=== PATIENT | female | born 1925 | race Caucasian/White ===

== ENCOUNTER 2016-10-19 12:00 | Observation (INO) | payer MEDICARE ==
[2016-10-19] MEDS ORDERED: SODIUM CHLORIDE 0.9% 1,000 ML ONE (12:58)
[2016-10-19 13:05] LABS: ABSOLUTE NEUTROPHIL COUNT 3.7 K/mm3 (1.8-7.7); BASO % 0.6 % (0.2-1.0); EOS # 0.3 (0.0-0.5); EOS % 3.9 % (0.9-2.9); IMM NEUT% 0.2 % (0-1); LYMPH # 1.8 (1.0-4.8); LYMPH % 27.5 % (15-45); MEAN CELL VOLUME 97.3 fl (81.0-99.0); MEAN CORPUSCULAR HGB CONC 31.8 g/dl (33.0-37.0); MEAN PLATELET VOLUME 9.3 fl (7.4-10.4); MONO # 0.6 (0.0-0.8); MONO % 9.1 % (4-12); NEUT % 58.7 % (43-75); PLATELET COUNT 188 K/mm3 (130-400); RED CELL DISTRIBUTION WIDTH 13.8 % (11.5-14.5)
[2016-10-19 13:12] LABS: PH,URINE 6.5 (5.0-8.0); URINE BILIRUBIN NEGATIVE (NEGATIVE); URINE BLOOD 2+ (NEGATIVE); URINE GLUCOSE (UA) NEGATIVE (NEGATIVE); URINE LEUKOCYTE ESTERASE TRACE (NEGATIVE); URINE NITRITE NEGATIVE (NEGATIVE); URINE PROTEIN NEGATIVE (NEGATIVE); URINE UROBILINOGEN NORMAL (0-1 mg/dl)
[2016-10-19 13:12] LABS: INR 3.03; PROTHROMBIN TIME 33.7 SECONDS (9.3-11.4)
[2016-10-19 13:15] LABS: URINE APPEARANCE CLEAR; URINE COLOR YELLOW
[2016-10-19 13:20] LABS: ALB/GLOB RATIO 1.2 (>1.0); ALBUMIN 3.7 gm/dL (3.5-5.7); CALCIUM 9.3 mg/dL (8.6-10.3)
[2016-10-19 13:25] LABS: URINE BACTERIA 2+; URINE RBC 0 /hpf
--- NOTE | 2016-10-19 13:54 | CT ---
Exam: CT head without contrast COMPARISON: 01/11/2013 INDICATION: High blood pressure. Anticoagulated. TECHNIQUE: CT examination of the head was obtained without contrast. FINDINGS: There is a tiny focus of cortically based increased signal intensity within the left parietal high convexity which was not seen on the 2013 exam. Although this could potentially reflect a small cortically based calcification, this finding does raise concern for a small petechial hemorrhage. No additional concern for acute intracranial hemorrhage is identified. There is no abnormal intra or extra-axial fluid collection. Cortical hernandez-white matter differentiation is maintained and there is no mass effect or midline shift. Ventricles remain mildly prominent. Patchy periventricular and deep white matter hypodensities are present, not significantly changed, compatible with chronic small vessel ischemic changes which are moderate in severity. There is mild to moderate global atrophy. The visualized paranasal sinuses and mastoid air cells are well aerated. IMPRESSION: Tiny linear focus of high density within the posterior left parietal high convexity which raises concern for small petechial hemorrhage given the history. No additional concern for acute intracranial hemorrhage is identified. Otherwise no significant interval change since 01/11/2013. Findings discussed with Dr. Wick at 1345 hours 10/19/2016.
[2016-10-19] MEDS ORDERED: LABETALOL HCL 5 MG/ML 20ML VIAL IV ONE (14:08)
[2016-10-19] MEDS ORDERED: PHYTONADIONE PO ONE (14:30)
[2016-10-19 15:14] VITALS: BMI 28.6
[2016-10-19] MEDS ORDERED: SODIUM CHLORIDE 0.9% 100 ML IV PRN (16:21)
[2016-10-19] MEDS ORDERED: MENTHOL/CETYLPYRD 1 EACH LOZENGE PO PRN (16:21)
[2016-10-19] MEDS ORDERED: MAGNESIUM HYDROXIDE 30 ML UDCUP PO PRN (16:21)
[2016-10-19] MEDS ORDERED: BISACODYL 10 MG SUP PR PRN (16:21)
[2016-10-19] MEDS ORDERED: ACETAMINOPHEN 325 MG TABLET PO PRN (16:21)
[2016-10-19] MEDS ORDERED: BLISTEX LIPSTICK 1 EACH TP PRN (16:21)
[2016-10-19] MEDS ORDERED: BISACODYL 5 MG TABLET.EC PO PRN (16:21)
[2016-10-19] MEDS ORDERED: LIDOCAINE 5% PATCH TD PRN (16:36)
[2016-10-19] MEDS: ENALAPRILAT DIHYDRATE 1.25 MG/ML 1ML VIAL IV SCH ×2 (17:37→23:08)
[2016-10-19] MEDS: POLYVINYL ALCOHOL 1.4% (TEARS) 300 GTTS/BOT SOLN.DROP OU SCH ×2 (17:37→20:59)
[2016-10-19] MEDS: PANTOPRAZOLE 40 MG TABLET DR PO SCH (17:37)
--- NOTE | 2016-10-19 17:49 | HP ---
DEANN LLAMAS [id number] DATE OF ADMISSION: October 19, 2016 CHIEF COMPLAINT: Vertigo. HISTORY OF PRESENT ILLNESS: The patient is an 89-year-old female who noted some dizziness and spinning when she would get up to the edge of her bed. This started a couple of days ago. She does not recall any initiating events. She notes that these symptoms seemed to improve after about one or two minutes after sitting at the edge of the bed, and she can walk okay using her cane which is her usual assistive device. She has noted a little bit of noise that seems to be in the right ear although it is hard to tell which ear is causing this. She describes it as sounding like a car idling. She has had no recent falls. She had checked her blood pressure at home and since it was high, she came to the emergency room to have this checked out. She has not had a headache or other symptoms. She notes her blood pressure is 180/107 at home with a heart rate of 58. In the emergency room, she had a CT of the head which had suggested a possible intracranial hemorrhage and being that she was on Coumadin, she was given a dose of vitamin K and hospitalist service contacted to observe this patient. PAST MEDICAL HISTORY: Is significant for: 1. Chronic atrial fibrillation. She is on Coumadin for this. 2. She has a history of moderate pulmonary hypertension. She had previously refused cardiac catheterization. 3. She has a history of hypertension. 4. Dyslipidemia. 5. Hypothyroidism. 6. History of hyperglycemia. 7. History of postherpetic neuralgia after having zoster on her left arm. 8. History of diverticulitis. PAST SURGICAL HISTORY: Remarkable for: 1. Cholecystectomy. 2. Thyroidectomy. 3. Left knee arthroscopy. 4. Dilation and curettage times two. 5. Colonoscopy. 6. Open reduction internal fixation of left humerus. 7. Cataract replacement. ALLERGIES: LISTED TAPE. CURRENT MEDICATIONS: 1. Levothyroxine 75 mcg daily. 2. Metoprolol 25 mg orally twice daily. 3. Prilosec 20 mg daily. 4. Spironolactone is listed although she states she does not take this. 5. Warfarin is 4 mg Thursday, Thursday, , and Thursday and 2 mg Thursday, Thursday and Thursday. 6. She also asks for her eyedrops for dry eyes. 7. She takes vitamin C. SOCIAL HISTORY: She is recently this year. She has two children, both live in [place]. No smoking, having quit at age 61. She does not drink. She lives in her home in [place]. She was baptized [employer] but not active. Hobbies include golfing and bowling, but she is not able to do these at this time. FAMILY HISTORY: Mom at 63 of heart disease according to old records. Father at 70 of diabetes and emphysema. She has three sisters with diabetes. REVIEW OF SYSTEMS: She has had some double vision but this is not new. She has been seeing her eye doctor for this for some time. Ears have that idling sound evident but it does not interfere with conversation. Hearing is otherwise okay. She does use hearing aids. Nose has been okay. She notes some sinus symptoms due to her daffodils. Mouth has been okay. Dentures are okay. Neck is okay. She uses a little pillow to raise her neck and shoulders because her neck and shoulders have been sore after a fall she had years ago. She notes her left side can get sore if she is lying on her side. Her left arm hurts some because of shingles which the rash has since resolved but it still continues to hurt some in a post herpetic fashion. Breathing has been okay. Heart has atrial fibrillation, but she is not limited in activities by her heart but rather her arthritis. Stomach, she has had a little bit more gas than average but has had no vomiting, no diarrhea, no constipation. No urinary complaints other than occasional leaking when she stands up. She uses a pad for this. Legs have been okay. Her knees have osteoarthritis. She has had some dry skin. She treats this with Gold Dowell powder. She has not had a prior history of strokes. Her code status is DO NOT RESUSCITATE. PHYSICAL EXAMINATION: GENERAL: A nontoxic female. VITAL SIGNS: Blood pressure is 185/110 here on the floor. Temperature 98.1, pulse 79, respirations 19, 96% saturation on room air. HEENT: Head is normocephalic, atraumatic. Eyes are normal externally. Ears, the right is unremarkable appearing. Tympanic membrane is hernandez and pearly without effusion or erythema. The left is somewhat occluded by cerumen and difficult to assess. Nose is unremarkable. Mouth has dentures. Mucous membranes are moist and unremarkable. NECK: No jugular venous distention is noted. No bruits are noted. No masses are noted. RESPIRATORY: Lungs are clear to auscultation bilaterally. CARDIOVASCULAR: Mostly regular rate and rhythm, although electrocardiogram shows a flutter pattern. ABDOMEN: Nontender, nondistended. Bowel sounds are quiet, no bruit, no masses noted. GENITOURINARY: Exam is deferred. BREAST: Exam is deferred. EXTREMITIES: Show no pitting edema although she does have large legs with delicate ankles and feet. Feet without ulceration or other changes. NEUROLOGIC: Oriented times three. Cranial nerves are intact. Speech is clear, fluent. She answers appropriately. Left shoulder demonstrates limited range of motion but hand grasp is otherwise fairly symmetric. Gait is not tested at this time. No nystagmus is seen at rest. Deep tendon reflexes are 2+ throughout. LABORATORY STUDIES: White count 6.4, hemoglobin 14.0, platelets 188. INR of 3.03. Sodium 139, potassium 4.3, chloride 103, CO2 29, BUN 13, creatinine 0.9, glucose 107, calcium is 9.3. Liver function tests are normal. Urinalysis, specific gravity 1.010, 1 to 4 red cells, 1 to 4 white cells. DIAGNOSTIC IMAGING: CT of brain has tiny focus of high density posterior left parietal high convexity raising concern for small petechial hemorrhage otherwise no acute changes. ELECTROCARDIOGRAM: Shows atrial flutter with a heart rate of 62 beats per minute with PVC noted. ASSESSMENT AND PLAN: 1. Vertigo. History suggests benign positional vertigo but with abnormal CT. We will be checking with physical therapy and occupational therapy and appreciate their input. 2. Possible abnormal CT. We will be holding warfarin. She received vitamin K. Plan neurologic checks and recheck CT in the morning and appreciate physical therapy and occupational therapy care. 3. Hypertension. Plan to increase treatment adding enalapril at low doses to get a blood pressure around 160/90. 4. Post herpetic neuralgia. We will consider trying lidocaine patches for arm. 5. Hypothyroidism. Continue on levothyroxine. 6. Recent loss of . Not otherwise addressed. 7. Dry eyes. Artificial tears ordered. 8. DO NOT RESUSCITATE status. This is ordered. 9. Venous thrombosis prophylaxis. Patient will be on mechanical treatment for right now avoiding Lovenox due to concern for intracranial bleed. 10. Chronic atrial fibrillation. Her rate is well controlled. Continue on metoprolol but will be holding warfarin at this time. 11. History of moderate pulmonary hypertension, reported stable. Cc: Cordell Randle M.D.
[2016-10-19] MEDS: DOCUSATE SODIUM 100 MG CAPSULE PO SCH (20:59)
[2016-10-19] MEDS: METOPROLOL TARTRATE 25 MG TABLET PO SCH (20:59)
[2016-10-20] MEDS: ENALAPRILAT DIHYDRATE 1.25 MG/ML 1ML VIAL IV SCH (05:17)
[2016-10-20 06:02] LABS: HEMATOCRIT 41.1 % (37.0-47.0); HEMOGLOBIN 13.3 gm/l (12.0-16.0)
[2016-10-20 06:16] LABS: INR 1.66; PROTHROMBIN TIME 17.9 SECONDS (9.3-11.4)
--- NOTE | 2016-10-20 06:33 | PDOC43 ---
- Subjective Chief Complaint: vertigo Patient reports not sleeping so well, but this was due more to the light in the room and being bothered by the ICD on her legs. No further vertigo. Some gas but no nausea, no pain. No new c/o. Awaiting CT scan this am. - Objective Vital Signs Temperature 98 F 10/20/16 05:02 Pulse Rate 56 10/20/16 05:43 Respiratory Rate 14 10/20/16 05:43 Blood Pressure 150/74 10/20/16 05:43 O2 Saturation by Pulse Oximetry 95 10/20/16 05:43 Oxygen Delivery Method Room Air Oxygen Flow Rate 0 Vital Signs Last 12 Hours Temp Pulse Resp BP Pulse Ox 10/20/16 05:43 56 14 150/74 95 10/20/16 05:02 98 F 60 14 152/73 93 10/20/16 03:09 100.6 F 62 14 166/88 94 10/20/16 01:10 16 10/19/16 23:14 62 185/85 97 10/19/16 22:58 98.9 F 66 16 133/105 96 10/19/16 19:39 98.3 F 60 18 157/78 95 10/19/16 19:00 18 Intake and Output 10/18/16 10/19/16 10/20/16 23:59 23:59 23:59 Intake Total 536 100 Output Total 100 400 Balance 436 -300 General: Alert, Cooperative, No Acute Distress HEENT: Atraumatic Lungs: Clear to Auscultation Bilaterally, Normal Air Movement Cardiovascular: Irregular Abdomen: Soft, Normal Bowel Sounds, Non-Distended, No Tenderness, No Rebounding , No Involuntary Guarding Extremities: Other (JOSELITO hose on, ICDs off at pt request), No Edema Psych/Mental Status: Normal Affect (very pleasant, remembers that I told her about repeat CT this am.), Normal Mood Laboratory 10/20/16 05:20 Current Medications: Current meds reviewed in EMR. Active Medications Acetaminophen (Tylenol) 650 mg PO Q6H PRN PRN Reason: Pain or Temperature > 100.5 F Last Admin: 10/20/16 03:20 Dose: 650 mg Artificial Tears (Tears Naturale) 2 gtts OU QID GONZALEZ Last Admin: 10/19/16 20:59 Dose: Not Given Benzocaine/Menthol (Cepacol) 1 each PO PRN PRN PRN Reason: Sore Throat Bisacodyl (Dulcolax) 10 mg [place] DAILY PRN PRN Reason: Constipation Bisacodyl (Dulcolax) 5 mg PO DAILY PRN PRN Reason: Constipation Docusate Sodium (Colace) 100 mg PO BID [facility] Last Admin: 10/19/16 20:59 Dose: 100 mg Enalaprilat (Vasotec) 0.625 mg IV Q6H [facility] Last Admin: 10/20/16 05:17 Dose: 0.625 mg Sodium Chloride (Sodium Chloride 0.9%) 100 mls @ 25 mls/hr IV PRN PRN PRN Reason: Flush Levothyroxine Sodium (Levothroid) 75 mcg PO QAMAC [facility] Lidocaine (Lidoderm) 1 - 2 each TD Q24H PRN PRN Reason: post herpetic neuralgia Magnesium Hydroxide (Milk Of Magnesia) 30 ml PO DAILY PRN PRN Reason: Constipation Metoprolol Tartrate (Lopressor) 25 mg PO BID [facility] Last Admin: 10/19/16 20:59 Dose: 25 mg Pantoprazole Sodium (Protonix) 40 mg PO DAILY [facility] Last Admin: 10/19/16 17:37 Dose: 40 mg Petrolatum/Paraffin/Mineral Oil (Blistex) 1 each TP PRN PRN PRN Reason: Dry and/or chapped lips Last Admin: 10/20/16 01:25 Dose: 1 each Sodium Chloride (Normal Saline 10ml Flush) 10 - 50 ml IV PRN PRN PRN Reason: IV Flush Last Admin: 10/20/16 05:17 Dose: 20 ml Sodium Chloride (Normal Saline 10ml Flush) 10 ml IV Q8HR [facility] Last Admin: 10/20/16 01:22 Dose: 10 ml - Problems: Assessment/Plan (1) Intracranial hemorrhage Status: SuspectedAssessment/Plan: Patient with some vertigo, tinnitus Warfarin stopped BP control with enalaprilat, metoprolol. Pt expresses that she does not want transfer or aggressive intervention in the case of a significant worsening. Repeat CT scheduled for today (2) Vertigo Status: AcuteAssessment/Plan: No vertigo since admit Pt describes vertigo, some tinnitus "motor sound" hx suggests BPPV CT suggests small intracranial hemorrhage; recheck CT scheduled for today. Warfarin held, Vit K given. Appreciate PT/OT eval. (3) Chronic atrial fibrillation Status: ChronicAssessment/Plan: atrial flutter seen on rhythm strip this am, with HR to 50. Warfarin stopped due to concern for intracranial hemorrhage Continue on metoprolol (4) HTN (hypertension) Qualifiers: Hypertension type: essential hypertension Qualifier Code: (I10) Essential (primary) hypertension Status: ChronicAssessment/Plan: Seeking moderate BP control. Continue on metoprolol, consider revise enalaprilat to PO losartan (5) Post herpetic neuralgia Status: ChronicAssessment/Plan: Lidoderm patches ordered, but pt hasn't tried yet. VTE Prophylaxis: Mechanical only due to DC warfarin, concern for bleed Disposition: TBD - appreciate PT/OT assessment. Pt previously ambulated with cane prior to admit.
[2016-10-20] MEDS ORDERED: LEVOTHYROXINE SODIUM 75 MCG TABLET PO SCH (07:30)
[2016-10-20 07:35] VITALS: BP 141/89
[2016-10-20] MEDS ORDERED: CEFTRIAXONE 1 GRAM DUPLEX 50 ML IV SCH (08:30)
--- NOTE | 2016-10-20 08:41 | CT ---
Exam: CT head without contrast COMPARISON: 10/19/2016, 01/11/2013 INDICATION: Follow-up on possible intracranial hemorrhage. TECHNIQUE: CT examination of the head was obtained without contrast. FINDINGS: The previously described tiny linear focus of cortically based high density within the left parietal high convexity is again appreciated, not significantly changed since straight exam. No additional areas of hyperdensity are appreciated. There is no abnormal intra or extra-axial fluid collection. There is no edema, mass effect or midline shift. Periventricular white matter hypodensities are again appreciated, compatible with chronic small vessel ischemic changes. There is mild to moderate global atrophy. Ventricles are not dilated. The visualized paranasal sinuses and mastoid air cells are well aerated. IMPRESSION: No significant interval change since yesterday's exam. There is a tiny linear focus of cortically based hypodensity within the left parietal high convexity. This was noted to be new since the 2012 exam which raised concern for petechial hemorrhage. While this could reflect a stable petechial hemorrhage, this could also reflect calcification. Nevertheless there is no evidence of intercurrent hemorrhage or other change since yesterday.
--- NOTE | 2016-10-20 08:58 | RAD ---
Exam: Two-view chest COMPARISON: 01/26/2013 INDICATION: Fever. FINDINGS: PA and lateral views of the chest were obtained. Cardiomegaly is similar. Lungs are well-inflated. There is no focal airspace disease or pleural effusion. Reverse shoulder arthroplasty is noted on the left. Bones of the chest wall are intact. Surgical clips are seen within the right upper quadrant. IMPRESSION: No radiographic evidence of pneumonia.
[2016-10-20] MEDS ORDERED: LOSARTAN POTASSIUM 50 MG TABLET PO SCH (09:00)
[2016-10-20] MEDS ORDERED: PUMP TUBING ONE (09:04)
[2016-10-20] MEDS: PANTOPRAZOLE 40 MG TABLET DR PO SCH (09:13)
[2016-10-20] MEDS: METOPROLOL TARTRATE 25 MG TABLET PO SCH (09:14)
[2016-10-20] MEDS: DOCUSATE SODIUM 100 MG CAPSULE PO SCH (09:14)
[2016-10-20] MEDS: POLYVINYL ALCOHOL 1.4% (TEARS) 300 GTTS/BOT SOLN.DROP OU SCH (09:15)
--- NOTE | 2016-10-20 11:48 | DS ---
DEANN LLAMAS [id number] DATE OF ADMISSION: October 19, 2016 DATE OF DISCHARGE: October 20, 2016 DISCHARGE DIAGNOSES: Are: 1. Vertigo, benign positional vertigo. 2. Abnormal CT of the head with findings possibly suggesting small intracranial hemorrhage without a history of trauma. 3. Hypertension. 4. Post herpetic neuralgia. 5. Hypothyroidism. 6. Dry eyes. 7. Recent loss of . 8. Chronic atrial fibrillation controlled with metoprolol now off anticoagulation. 9. History of moderate pulmonary hypertension. 10. DO NOT RESUSCITATE status. REASON FOR ADMISSION: The patient is an 89-year-old female who noted some dizziness and spinning when she got up to the edge of the bed starting a couple of days prior to admission. She does not recall any trauma or initiating events. She notes the symptoms generally would resolve by the time she sat up at the edge of the bed for a minute or two, and that she could walk fine using her cane which is her usual assistive device. She had noted a little bit of noise in her ear suggestive of tinnitus, sounding like a car idling. She took her blood pressure at home and noted it was high and so came to the emergency department. She has not had headache or other symptoms. In the emergency department she had elevated blood pressure noted and a CT of the head which had shown tiny linear focus of high density within the posterior left parietal high convexity which raises concern for small petechial hemorrhage given the history. No other additional concerns for acute intracranial hemorrhage identified. No other significant change since January 11, 2013. Because of elevated blood pressure, anticoagulation status and abnormal CT, she was referred to the hospitalist service for observation. She received vitamin K in the emergency department and her blood pressure was treated initially with labetalol in the emergency room and then later with enalapril. She had an uneventful night and was evaluated by physical therapy who felt that she ambulated well and was at her baseline. Her neurologic exam was unremarkable. Her labs showed a white count of 6.4, hemoglobin 14.0, platelets 188, INR was 3.03 on admission and 1.6 after receiving vitamin K. Chemistry profile was unremarkable with a GFR of 59, glucose 107. Urinalysis showed 1 to 4 white cells, 1 to 4 epithelial cells, 2+ bacteria and so was cultured. She received a dose of ceftriaxone while here but urine cultures are still pending at this time. Patient underwent repeat CT scan as requested by neurosurgery and this showed no significant interval change since yesterday's exam. There is a tiny linear focus of cortically based hypodensity within the left parietal high convexity. This is new since 2012 which raised a concern for petechial hemorrhage. While this could reflect a stable petechial hemorrhage, this could also reflect calcification but no evidence of intracranial hemorrhage change since previous. Patient also had a chest x-ray showing no evidence of pneumonia. Patient was felt to be stable for discharge on October 20, 2016. DISPOSITION: She is anticipated to return to home. DISCHARGE MEDICATIONS: So she will resume her medications: 1. Vitamin C 500 mg daily. 2. Levothyroxine 75 mcg orally daily. 3. Metoprolol 25 mg orally twice daily. 4. Omeprazole 20 mg in the morning. 5. Artificial tears four times daily. 6. She was also given prescriptions for Cipro 250 mg orally twice daily times five more days. 7. New prescription for losartan 25 mg orally daily. ACTIVITY: Will be as tolerated. DIET: Will be as tolerated. FOLLOW UP: She is to follow up with Dr. Randle regarding blood pressure and if having a change in status. Job [id number] Cc: Cordell Randle M.D.
== END 2016-10-20 10:35 | disposition home or self-care (01) ==
LOC: ED 12:00 → MS 14:02
PROVIDERS: ADMIT Family Medicine; ATTEND Family Medicine
DX: I62.9 Nontraumatic intracranial hemorrhage, unspecified (principal); H81.10 Benign paroxysmal vertigo, unspecified ear; I10 Essential (primary) hypertension; M79.2 Neuralgia and neuritis, unspecified; E03.9 Hypothyroidism, unspecified; H04.129 Dry eye syndrome of unspecified lacrimal gland; I48.2 Chronic atrial fibrillation; Z66 Do not resuscitate; E78.5 Hyperlipidemia, unspecified
CPT/HCPCS: 85025; 87086; 80053; 85014; 85018; 85610 ×2; 81001; 36415; 71020; 70450 ×2; 97535; 97165; 99285 ×2; 96374; 93005; A9270 ×12; J7030; J7050; J0696

== ENCOUNTER 2016-10-24 11:46 | Emergency (ER) | payer MEDICARE ==
[2016-10-24 14:41] LABS: CALCIUM 9.4 mg/dL (8.6-10.3)
== END 2016-10-24 15:46 | disposition home or self-care (01) ==
LOC: ED 11:46
DX: I10 Essential (primary) hypertension (principal)